=== PATIENT | female | born 1945 | race Caucasian/White ===

== ENCOUNTER 2016-07-15 09:58 | Emergency (ER) | payer MEDICARE, BC ==
[2016-07-15 10:53] LABS: HEMOGLOBIN 11.8 gm/dl (12.3-15.3); RED BLOOD COUNT 3.52 M/UL (4.00-5.10); WHITE BLOOD COUNT 5.7 K/UL (4.5-11.0)
[2016-07-15 11:16] LABS: BUN/CREATININE RATIO 14 (0-10)
== END 2016-07-15 16:31 | disposition home or self-care (01) ==
LOC: ER1 09:58
PROVIDERS: Emergency Medicine
DX: S09.90XA Unspecified injury of head, initial encounter (principal); S50.02XA Contusion of left elbow, initial encounter; S60.222A Contusion of left hand, initial encounter; R55 Syncope and collapse; N39.0 Urinary tract infection, site not specified; E87.1 Hypo-osmolality and hyponatremia; D64.9 Anemia, unspecified; F03.90 Unspecified dementia, unspecified severity, without behavioral disturbance, psychotic disturbance, mood disturbance, and anxiety; W18.39XA Other fall on same level, initial encounter; Y92.002 Bathroom of unspecified non-institutional (private) residence as the place of occurrence of the external cause; Z88.2 Allergy status to sulfonamides; Z79.899 Other long term (current) drug therapy; Z88.8 Allergy status to other drugs, medicaments and biological substances
CPT/HCPCS: 36415; 70450; 71010; 73080; 73090; 73130; 80053; 81001; 82550; 82553; 83874; 84484; 85025; 87040; 87077; 87086; 87186; 93005; 96365; 99284; J0696; J7050

== ENCOUNTER 2016-08-12 23:07 | Emergency (ER) | payer MEDICARE, BC ==
[2016-08-13 00:32] LABS: HEMOGLOBIN 11.6 gm/dl (12.3-15.3); RED BLOOD COUNT 3.49 M/UL (4.00-5.10); WHITE BLOOD COUNT 4.9 K/UL (4.5-11.0)
[2016-08-13 00:55] LABS: BUN/CREATININE RATIO 36 (0-10)
== END 2016-08-13 05:13 | disposition home or self-care (01) ==
LOC: ER1 23:07
PROVIDERS: Family Medicine
DX: S01.01XA Laceration without foreign body of scalp, initial encounter (principal); G20 Parkinson's disease; F02.80 Dementia in other diseases classified elsewhere, unspecified severity, without behavioral disturbance, psychotic disturbance, mood disturbance, and anxiety; Z88.2 Allergy status to sulfonamides; Z23 Encounter for immunization; W18.39XA Other fall on same level, initial encounter; Z91.81 History of falling; Y92.009 Unspecified place in unspecified non-institutional (private) residence as the place of occurrence of the external cause
CPT/HCPCS: 12001; 70450; 71010; 72125; 80053; 82550; 82553; 83874; 83880; 84484; 85025; 90471; 90715; 99284

== ENCOUNTER 2016-08-29 10:45 | Emergency (ER) | payer MEDICARE, BC ==
[2016-08-29 11:37] LABS: HEMOGLOBIN 11.1 gm/dl (12.3-15.3); RED BLOOD COUNT 3.4 M/UL (4.00-5.10); WHITE BLOOD COUNT 6.4 K/UL (4.5-11.0)
[2016-08-29 11:58] LABS: BUN/CREATININE RATIO 30 (0-10)
== END 2016-08-29 14:45 | disposition home or self-care (01) ==
LOC: ER1 10:45
PROVIDERS: Family Medicine
DX: R06.00 Dyspnea, unspecified (principal); R22.43 Localized swelling, mass and lump, lower limb, bilateral; F03.90 Unspecified dementia, unspecified severity, without behavioral disturbance, psychotic disturbance, mood disturbance, and anxiety; Z88.2 Allergy status to sulfonamides; Z79.899 Other long term (current) drug therapy
CPT/HCPCS: 36415; 71010; 80053; 80299; 82550; 82553; 83874; 83880; 84443; 84484; 85025; 93005; 99284

== ENCOUNTER → 2020-07-01 | Outpatient (CLI) | payer MEDICARE, BC, OTHER ==
[~2020-07-01] MED LIST: ACETAMINOPHEN500 MG PO; ALPRAZOLAM1 MG PO; ARICEPT5 MG PO; BISCOLAX10 MG PR; BONIVA150 MG PO; BUSPAR 5MG TABLE5 MG PO; CALCIUM PO; CARDIZEM CD120 MG PO; CHLORTABS4 MG PO; COMTAN200 MG PO; DEPAKOTE ER500 MG PO; ELAVIL 25 MG TA25 MG PO; ENULOSE10 GM/15 M PO; FOSAMAX70 MG PO; HYDROCODON-ACE1 EAC6 PO; K-DUR TAB 20 M20 MEQ PO; KEFLEX CAP 500500 MG PO; LASIX20 MG PO; LEXAPRO10 MG PO; MAGNESIUM400 MG PO; MULTIVITAMIN PO; NAMENDA10 MG PO; NITROGLYCERIN0.4 MG SL; NORCO 10-325 T1 EACH PO; NORCO 7.5-3251 EACH PO; NORTHERA100 MG PO; OMEPRAZOLE20 M1 PO; PANTOPRAZOLE SO40 MG PO; REQUIP0.5 MG PO; SAPHRIS5 MG PO; SENOKOT8.6 MG PO; SINEMET 25/100 T1 EA PO; SYNTHROID 50 M50 MCG PO; TYLENOL 650 MG650 MG PR; VITAMIN B-121000 MC3 PO; VITAMIN C 250250 MG PO; VITAMIN C 500500 MG PO; [UNRECOGNIZED DRUG - OTHER] PO
== END ==
LOC: LAB 22:10
DX: N39.0 Urinary tract infection, site not specified (principal)

== ENCOUNTER → 2020-07-02 | Outpatient (CLI) | payer MEDICARE, BC, OTHER | LOC: LAB 01:39 | DX: N39.0 Urinary tract infection, site not specified (principal) | CPT/HCPCS: 81001; 87077; 87086; 87186 ==

== ENCOUNTER 2020-09-04 22:51 | Emergency (ER) | payer MEDICARE, BC, OTHER | END 2020-09-05 05:00 | disposition short-term general hospital (02) | LOC: ER1 22:51 | DX: S82.302A Unspecified fracture of lower end of left tibia, initial encounter for closed fracture (principal); F03.90 Unspecified dementia, unspecified severity, without behavioral disturbance, psychotic disturbance, mood disturbance, and anxiety; W19.XXXA Unspecified fall, initial encounter | CPT/HCPCS: 73522; 73552; 73564; 73590; 73620; 99284 ==